=== PATIENT | female | born 1980 | race Two or more races ===

== ENCOUNTER 2020-08-20 05:57 | Inpatient (IN) | payer BC ==
[~2020-08-20] VITALS: Ht 162.6 cm; Wt 78.0 kg
[~2020-08-20 05:57] MED LIST: CODE1TAB37 PO; NAPR500T14 PO; SYNTHROID100 MCG PO; VITAMIN D PO
[2020-08-21] MEDS ORDERED: VITAMIN D310 MC4 (08:15)
[2020-08-21] MEDS ORDERED: CODE1TAB37 PO (09:22)
[2020-08-21] MEDS ORDERED: NAPROXEN500 MG PO (09:23)
[2020-08-21] MEDS ORDERED: MORGIDOX100 MG PO (09:24)
[2020-08-21] MEDS ORDERED: HEMATOGEN FORT1 EACH PO (09:24)
== END 2020-08-21 10:30 | disposition home or self-care (01) | DRG 745 ==
LOC: CIR.AMB 05:57 → ADM 07:15 → CIR.AMB 07:30 → O/R 16:53 → OB/GYN 17:06
PROVIDERS: ADMIT Obstetrics & Gynecology; ATTEND Obstetrics & Gynecology
PROC: 0UB74ZZ Excision of Bilateral Fallopian Tubes, Percutaneous Endoscopic Approach (ICD-10-PCS; 2020-08-20)
PROC: 0UDB8ZZ Extraction of Endometrium, Via Natural or Artificial Opening Endoscopic (ICD-10-PCS; principal; 2020-08-20 19:00)
DX: Z30.2 Encounter for sterilization (principal); N92.1 Excessive and frequent menstruation with irregular cycle